=== PATIENT | female | born 1945 | race Caucasian/White ===

== ENCOUNTER → 2018-08-20 | Outpatient (CLI) | payer MEDICARE ==
[~2018-08-20] MED LIST: ACET-2208 PO; CA C PO; IBAN150T6 PO; IBAN2.5T2 PO; IRO150 PO
--- NOTE | 2018-08-20 10:40 | RADIOLOGY IMAGING REPORT ---
FACILITY: [facility] PATIENT NAME: Reva Elizabeth : 1945 MR: [id number] V: [id number] EXAM DATE: ORDERING PHYSICIAN: ABEBA SCHROEDER TECHNOLOGIST: Location: [facility] - [place] Patient: Reva Elizabeth : 1945 Visit/Account:[id number] Date of Sevice: 08/20/2018 DEXA Scan Clinical history: Osteopenia, vitamin D deficiency, foot fracture in May 2018. Comparison: DEXA scan from 08/27/2013. LUMBAR SPINE: The bone mineral density (BMD) measured from L1-L4 correlates with a Z-score of 0.2 and a T-score of -1.7 which is osteopenia as defined by the World Health Organization. The corresponding risk of frac ture in the lumbar spine is 3-4 times increased compared with a young adult reference population. Th is value has decrease by 3.6 % since the prior study. More than 5% change is considered significant. HIP: Bone mineral density (BMD) measured in the LEFT total hip region correlates with a Z-score -0.1 and a T-score of -1.9 which is osteopenia as defined by the World Health Organization. The corresponding risk of fracture in the hip is 3-4 times increased compared to a young adult reference population. Th is value has decrease by -1.4 % since the prior study. More than 5% change is considered significant . T score left femoral neck -2.3 Bone mineral density (BMD) measured in the Femoral Neck region measures 0.717 g/cm?. IMPRESSION: 1. Lumbar spine: Osteopenia. There has been 3.6% decrease in the bone mineral density since the pre vious exam. 2. Left Total Hip: Osteopenia. There has been 1.4% decrease in the bone mineral density since the p revious exam. 3. Femoral Neck: Bone Mineral Density is 0.717 g/cm? The next DEXA scan of this patient should include the following sites: L1-L4 and the left hip. FRAX? WHO Fracture Risk Assessment Tool link: <http://www.shef.ac.uk/FRAX/tool.jsp?locationValue=9> PLEASE NOTE: 1) The World Health Organization defines low BMD as follows: T-score Normal > -1 Osteopenia < -1 and > -2.5 Osteoporosis < -2.5 without fractures Established osteoporosis < -2.5 with fractures 2) In general, you may wish to consider: Diagnosis Treatment Follow-up DEXA Normal BMD Prevention 2-3 years Osteopenia Prevention/therapy 1-2 years Osteoporosis Therapy Yearly 3) Fracture risk estimated from the T-score is more accurate for vertebral fractures (often spontane ous) than for hip fractures. Report Dictated By: Nat Braden MD at 08/20/2018 10:34 AM Report E-Signed By: Nat Braden MD at 08/20/2018 10:35 AM WSN:[email or web address]
== END ==
LOC: RAD 00:34
PROVIDERS: ATTEND Nurse Practitioner Family
DX: M85.89 Other specified disorders of bone density and structure, multiple sites (principal); E55.9 Vitamin D deficiency, unspecified; M84.372 Stress fracture, left ankle; N95.9 Unspecified menopausal and perimenopausal disorder
CPT/HCPCS: 77080